=== PATIENT | female | born 1965 | race Caucasian/White ===

== ENCOUNTER 2018-02-22 06:37 | Inpatient (IN) | payer OTHER ==
[~2018-02-22] VITALS: Ht 162.6 cm; Wt 78.9 kg
[2018-02-22] VITALS (13 sets, daily range): BP systolic 105–151; BP diastolic 50–90
[~2018-02-22 06:37] MED LIST: FISH OIL 1,0001 EAC5 ORAL; MULTIVITAMINS1 EAC2 ORAL; PROBIOTIC1 EAC6 PO; TURMERIC 500 M1 EAC1 PO
[2018-02-22] MEDS ORDERED: Lidocaine 1% MPF 10mg/ml 5ml ONE (07:02)
[2018-02-22] MEDS ORDERED: Dexamethasone 4mg/ml vial ONE (07:02)
[2018-02-22] MEDS ORDERED: Propofol 200mg/20ml IV ONE (07:02)
[2018-02-22] MEDS ORDERED: Zemuron 50mg/5ml Inj IV ONE (07:07)
[2018-02-22] MEDS ORDERED: Thrombin 5000 units spray kit TOPIC ONE (07:08)
[2018-02-22] MEDS ORDERED: Thrombin 5000 units TOPIC ONE ×2 (07:09→07:10)
[2018-02-22] MEDS ORDERED: Gelfoam Absorbable 1gm powder pkt TOPIC ONE (07:09)
[2018-02-22] MEDS ORDERED: Gelfoam Size TOPIC ONE (07:09)
[2018-02-22] MEDS ORDERED: Bacitracin 50000 Units Vial ONE ×2 (07:09→09:10)
[2018-02-22] MEDS ORDERED: Bupivacaine 0.5% Inj 30 ml vial INJ ONE (07:10)
[2018-02-22] MEDS ORDERED: EPINEPHrine 1mg/1ml Amp ONE (07:10)
[2018-02-22] MEDS ORDERED: fentaNYL 100 mcg/2 mL IV ONE ×3 (07:14→11:27)
[2018-02-22] MEDS ORDERED: Ketamine 500mg Inj ONE (07:16)
[2018-02-22] MEDS ORDERED: Lidocaine 1% 10mg/ml/Epi 0.005mg/ml 30ml vial INJ ONE (08:17)
[2018-02-22] MEDS ORDERED: Heparin 5000 units/ml inj ONE (08:22)
--- NOTE | 2018-02-22 08:33 | Pre-Procedure Note/Attestation ---
Pre-Procedure Note/Attestation Complete Prior to Procedure Planned Procedure: not applicable Procedure Narrative: L4-5 ALIF Indications for Procedure Pre-Operative Diagnosis: L4-5 disc hernia Attestation I attest that I discussed the nature of the procedure; its benefits; risks and complications; and alternatives (and the risks and benefits of such alternatives ), prior to the procedure, with the patient (or the patient's legal provider relations representative). I attest that, if there was a reasonable possibility of needing a blood transfusion, the patient (or the patient's legal provider relations representative) was given the [facility] standardized written summary, pursuant to the Silverio Reggie Blood Safety Act ([place] Health and Safety Code # 1645, as amended). I attest that I re-evaluated the patient just prior to the surgery and that there has been no change in the patient's H&P, except as documented below: TANNER JACOBS Feb 22, 2018 08:33
[2018-02-22] MEDS ORDERED: Labetalol 5mg/ml 20ml vial IV ONE (09:05)
[2018-02-22] MEDS ORDERED: Sugammadex Sodium 200mg/2ml vial IV ONE (10:08)
--- NOTE | 2018-02-22 10:14 | Anethesia Preoperative Eval ---
Anesthesia Pre-op PMH/ROS General Date of Evaluation: Feb 22, 2018 Time of Evaluation: 07:20 Anesthesiologist: ASA Score: ASA 2 Mallampati Score Class I : Soft palate, uvula, fauces, pillars visible Class II: Soft palate, uvula, fauces visible Class III: Soft palate, base of uvula visible Class IV: Only hard plate visible Mallampati Classification: Class II Surgeon: esperanza Diagnosis: l4-5 disc nerniation Surgical Procedure: L 4-5 anterior lumbar interbody fusion w/ possible allograft Family History: no anesthesia problems Allergies: Coded Allergies: No Known Allergies (Unverified , 02/22/18) Past Medical History Cardiovascular: Denies: HTN, CAD, MT, valve dz, arrhythmia, other Pulmonary: Denies: asthma, COPD, NATE, other Gastrointestinal/Genitourinary: Denies: GERD, CRI, ESRD, other Neurologic/Psychiatric: Denies: dementia, CVA, depression/anxiety, TIA, other Endocrine: Denies: DM, hypothyroidism, steroids, other HEENT: Denies: cataract (L), cataract (R), glaucoma, [place] (L), [place] (R), other Hematology/Immune: Denies: anemia, DVT, bleeding disorder, other Musculoskeletal/Integumentary: Denies: OA, RA, DJD, DDD, edema, other Other: obesity PSxH Narrative: c/s, right arm Anesthesia Pre-op Phys. Exam Physician Exam Last Vital Signs Date Time Temp Pulse Resp B/P (MAP) Pulse Ox O2 Delivery O2 Flow Rate FiO2 02/22/18 07:13 98.5 79 18 143/90 (107) 98 98.5 02/22/18 07:00 Room Air Constitutional: NAD Cardiovascular: RRR Respiratory: CTA Gastrointestinal: S/NT/ND Airway Exam Mallampati Score: Class II MO: full ROM: full Dentures: lower Anesthesia Pre-op A/P Risk Assessment & Plan Assessment: asa 2 Plan: ETGA Status Change Before Surgery: No Pre-Antibiotics Drug: ancef 2 grams Given Within 1 Hr of Incision: Yes Time Given: 08:00 Trina Thompson M.D. Feb 22, 2018 10:14
[2018-02-22] MEDS ORDERED: LR 1000ml 1,000 ML IVLG SCH (10:15)
[2018-02-22] MEDS ORDERED: Hydromorphone 0.5mg/0.5ml inj IVP PRN ×2 (10:15→14:00)
[2018-02-22] MEDS ORDERED: Acetaminophen (Non formulary) 100 ML IV ONE (10:15)
[2018-02-22] MEDS ORDERED: DiphenhydrAMINE 50mg/ml Inj IVP PRN (10:15)
[2018-02-22] MEDS ORDERED: Labetalol 5mg/ml 20ml vial IV PRN (10:15)
[2018-02-22] MEDS ORDERED: Midazolam 2mg/2ml Inj IVP PRN (10:15)
[2018-02-22] MEDS ORDERED: fentaNYL 100 mcg/2 mL IV PRN (10:15)
[2018-02-22] MEDS ORDERED: ePHEDrine 50mg/ml Inj ONE (10:46)
--- NOTE | 2018-02-22 11:11 | Brief Operative Note ---
Immediate Post Operative Note Operative Note Chief Complaint: LBP disc hernia Pre-op Diagnosis: L4-5 disc hernia Procedure: L-45 ALIF Post-op Diagnosis: same as pre-op Findings: consistent w/pre-op dx studies Surgeon: Niall Jacobs Benefits Assistant: Hugo Mar Additional Surgeons: Shree Langston Anesthesiologist: Anesthesia: general Specimen: yes - disc Complications: none Condition: stable Fluids: See Anesth Estimated Blood Loss: volume - 50 cc Drains: none Implant(s) used?: Yes - Nuvasive implant and BMP TANNER JACOBS Feb 22, 2018 11:11
--- NOTE | 2018-02-22 11:19 | Immediate Post-Op Evaluation ---
Immediate Post-Op Evalulation Immediate Post-Op Evalulation Procedure: L4-5 anterior interbody fusion w/allograft Date of Evaluation: Feb 22, 2018 Time of Evaluation: 11:54 IV Fluids: LR 800ml Blood Products: 0 Estimated Blood Loss: 200ml Urinary Output: 100ml Blood Pressure Systolic: 120 Blood Pressure Diastolic: 69 Pulse Rate: 88 Respiratory Rate: 17 O2 Sat by Pulse Oximetry: 100 Temperature (Fahrenheit): 97.8 Pain Score (1-10): 0 Nausea: No Vomiting: No Complications none Patient Status: awake, patent, none Hydration Status: adequate Drug: ancef 2 grams Given Within 1 Hr of Incision: Yes Time Given: 08:00 Trina Thompson M.D. Feb 22, 2018 11:19
--- NOTE | 2018-02-22 11:59 | Diagnostic Imaging Report ---
Indication: Lower extremity numbness, intraoperative Technique: Intraoperative imaging Comparison: none Findings: Intraoperative images document placement of anterior fusion hardware and a disc spacer at L4-5 Impression: Intraoperative imaging, as described
--- NOTE | 2018-02-22 13:32 | 48 Hour Post Anesthesia Eval ---
Post Anesthesia Evaluation Procedure: L4-5 anterior interbody fusion w/allograft Date of Evaluation: Feb 22, 2018 Time of Evaluation: 12:50 Blood Pressure Systolic: 105 0: 59 Pulse Rate: 71 Respiratory Rate: 24 Temperature (Fahrenheit): 97.9 O2 Sat by Pulse Oximetry: 100 Airway: patent Nausea: No Vomiting: No Pain Intensity: 0 Hydration Status: adequate Mental Status/LOC: patient returned to baseline Post-Anesthesia Complications: none Follow-up care needed: N/A Trina Thompson M.D. Feb 22, 2018 13:32
[2018-02-22] MEDS ORDERED: D5 1/2NS 1,000 ML IV SCH (14:00)
[2018-02-22] MEDS ORDERED: HYDROmorphone 1mg/ml Carpuject SUBQ PRN (14:00)
[2018-02-22] MEDS: ceFAZolin 1gm/50ml Premix 50 ML IV SCH (16:40)
--- NOTE | 2018-02-22 18:26 | General Progress Note ---
Assessment/Plan Status Narrative s/p ALIF perioperative antibiotic prophylaxis given PT OT dvt prophylaxis pain control minimal blood loss Subjective Date patient seen: Feb 22, 2018 Time patient seen: 18:23 Allergies: Coded Allergies: No Known Allergies (Unverified , 02/22/18) Subjective S/P Anterior lumbar interbody fusion denies any chest pain has abdomen pain no vomiting no palpitation Objective Last 24 Hour Vital Signs Date Time Temp Pulse Resp B/P (MAP) Pulse Ox O2 Delivery O2 Flow Rate FiO2 02/22/18 15:08 97.9 02/22/18 14:38 97.9 02/22/18 13:32 208.2 71 24 100 02/22/18 13:12 98.3 02/22/18 13:05 98.2 71 17 118/65 98 Nasal Cannula 3 98.2 02/22/18 12:50 71 24 105/59 100 Nasal Cannula 3 02/22/18 12:42 75 18 118/62 100 Nasal Cannula 3 02/22/18 12:42 97.9 02/22/18 12:25 78 16 105/52 100 Nasal Cannula 3 02/22/18 12:15 79 19 119/60 100 Nasal Cannula 3 02/22/18 12:11 208.0 88 17 100 02/22/18 12:04 82 17 106/50 100 Simple Mask 6 02/22/18 11:59 83 19 120/68 100 Simple Mask 6 02/22/18 11:54 97.8 88 17 120/69 100 Simple Mask 6 97.8 02/22/18 07:13 98.5 79 18 143/90 (107) 98 98.5 02/22/18 07:00 Room Air Height (Feet): 5 Height (Inches): 4.00 Weight (Pounds): 175 General Appearance: WD/WN EENT: other - has tatooed eye brow Neck: other - no jvd Cardiovascular: normal rate, regular rhythm Respiratory/Chest: lungs clear Abdomen: other - no bowel sounds Extremities: other - no clubbing or cyanosis Hermelindo Jimenez MD Feb 22, 2018 18:26
[2018-02-22] MEDS: D5 1/2NS 1,000 ML IV SCH (20:35)
[2018-02-22] MEDS: HYDROcodone/Acetamin 10/325 tab ORAL PRN (21:17)
[2018-02-22] MEDS ORDERED: Hydromorphone 0.5mg/0.5ml inj SUBQ PRN (23:00)
[2018-02-23] VITALS: BP 155/74
[2018-02-23] MEDS: ceFAZolin 1gm/50ml Premix 50 ML IV SCH ×2 (00:20→08:11)
[2018-02-23] MEDS: D5 1/2NS 1,000 ML IV SCH ×4 (03:02→23:25)
[2018-02-23] MEDS: HYDROcodone/Acetamin 10/325 tab ORAL PRN ×3 (03:26→16:25)
[2018-02-23 06:13] VITALS: BP 118/58
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
[2018-02-23] MEDS ORDERED: LR 1000ml ONE (07:30)
[2018-02-23] MEDS ORDERED: NS Irrig 1000ml ONE (07:30)
[2018-02-23] MEDS ORDERED: Sterile Water Irrig 1000ml IRRIG ONE (07:30)
[2018-02-23] MEDS ORDERED: Propofol 1,000mg/ 100ml btl IV ONE (07:30)
[2018-02-23] MEDS: Heparin 5000 units/ml inj SUBQ SCH ×2 (09:00→21:00)
[2018-02-23 11:04] VITALS: BP 114/79
--- NOTE | 2018-02-23 15:22 | General Progress Note ---
Assessment/Plan Status Narrative s/p ALIf doing well pt ot dvt prophyalxos paincontrol monitro carolynley much improved feeding per surgeron ivf Subjective Date patient seen: Feb 23, 2018 Time patient seen: 15:20 Allergies: Coded Allergies: No Known Allergies (Unverified , 02/22/18) Subjective S/P Anterior lumbar interbody fusion denies any chest pain has abdomen pain no vomiting no palpitation has some abdomen lj did well with pt Objective Last 24 Hour Vital Signs Date Time Temp Pulse Resp B/P (MAP) Pulse Ox O2 Delivery O2 Flow Rate FiO2 02/23/18 11:04 98.3 79 18 114/79 (91) 98 98.3 02/23/18 09:00 Room Air 02/23/18 06:13 97.1 69 18 118/58 (78) 100 97.1 02/23/18 00:00 97.7 83 18 155/74 (101) 99 97.7 02/22/18 20:00 98.2 72 18 151/69 (96) 99 98.2 Intake and Output 02/22/18 02/23/18 19:00 07:00 Intake Total 1450 ml 900 ml Output Total 300 ml 1375 ml Balance 1150 ml -475 ml Intake IV Total 1450 ml 900 ml Output Urine Total 100 ml 1375 ml Stool Total 0 ml Estimated Blood Loss 200 ml # Voids 1 Height (Feet): 5 Height (Inches): 4.00 Weight (Pounds): 174 General Appearance: WD/WN Cardiovascular: normal rate, regular rhythm Respiratory/Chest: lungs clear Abdomen: soft Extremities: other - no clubbing Hermelindo Jimenez MD Feb 23, 2018 15:22
[2018-02-23 15:33] VITALS: BP 154/54
--- NOTE | 2018-02-23 22:46 | Progress Note ---
DATE: 02/23/2018 ACUTE PAIN MANAGEMENT PHYSICIAN PROGRESS NOTE MEDICATIONS: Medication administration record reviewed. Medications include Phenergan, Protonix, Zofran, Dilaudid, Kelso, subcutaneous heparin, Benadryl, Mylanta, and Tylenol. LABORATORY STUDIES: No interval laboratory studies. OBJECTIVE: VITAL SIGNS: Pain level 5/10 on the visual analog pain scale. Afebrile, pulse 79, respirations 18, blood pressure 114/79, and oxygen saturation 98% on room air. I spent over 60 minutes in consultation today. I saw the patient at the bedside with the physical therapist. I also discussed the case with Internal Medicine, Dr. Hermelindo Jimenez, and the surgeon, Dr. Medina. The patient is doing exceeding well. She is moving in and out of bed with ease. She has been alternating doses of the p.r.n. Kelso with Dilaudid, receiving excellent analgesic effect. The patient already has a prescription for Kelso, which her at home. The patient shows no adverse side effects from any medications and continues with intravenous fluids at a generous rate of 150 mL an hour. The patient has been voiding urine well after removal of the Lutz catheter, the patient states that her urine is quite clear. The patient is hungry after her ALIF procedure, she still has not yet passed any flatus. We will continue her NPO except for medications and sips for now. Once she passes flatus, we will aggressively increase her diet for tolerability. The surgeon has the patient on subcutaneous heparin q.12 hours per the surgeon for DVT prophylaxis. The patient has been compliant using her incentive spirometer, which has kept her afebrile postoperatively. We will see how the patient continues to progress with the uatsdin of bowel function for likely discharge home in the next 48 hours. Hermelindo Bean M.D. DR: DIALLO JOB#: [id number] CC:
[2018-02-24] MEDS: HYDROcodone/Acetamin 10/325 tab ORAL PRN ×2 (01:04→08:59)
[2018-02-24] MEDS: D5 1/2NS 1,000 ML IV SCH ×2 (06:02→12:30)
[2018-02-24 07:24] LABS: BASOPHILS % (AUTO) 0.5 % (0.0-2.0); EOSINOPHILS % (AUTO) 0.1 % (0.0-3.0); HEMATOCRIT 33.5 % (37.0-47.0); HEMOGLOBIN 11.1 G/DL (12.0-16.0); LYMPHOCYTES % (AUTO) 10.5 % (20.0-45.0); MEAN CORPUSCULAR VOLUME 88 FL (80-99); MONOCYTES % (AUTO) 9.7 % (1.0-10.0); NEUTROPHILS % (AUTO) 79.1 % (45.0-75.0); PLATELET COUNT 343 K/UL (150-450); RED BLOOD COUNT 3.82 M/UL (4.20-5.40); RED CELL DISTRIBUTION WIDTH 13.5 % (11.6-14.8); WHITE BLOOD COUNT 17.6 K/UL (4.8-10.8)
[2018-02-24 07:40] LABS: ANION GAP 7 mmol/L (5-15); BLOOD UREA NITROGEN 6 mg/dL (7-18); CALCIUM 8.4 MG/DL (8.5-10.1); CARBON DIOXIDE 30 MMOL/L (21-32); CHLORIDE 101 MMOL/L (98-107); CREATININE 0.7 MG/DL (0.55-1.30); SODIUM 138 MMOL/L (136-145)
[2018-02-24] MEDS: Heparin 5000 units/ml inj SUBQ SCH (08:51)
--- NOTE | 2018-02-24 09:58 | Discharge Summary ---
Discharge Summary Discharge Summary Discharge Summary DATE OF ADMISSION: 02/22/2018 DATE OF DISCHARGE: 02/24/2018 REASON FOR HOSPITALIZATION: lumbar disxc disease SURGERY PERFORMED: L:4-L5 ALIF CONDITION IN THE HOSPITAL:The patient tolerated the surgery without complications. DISCHARGE CONDITION: The patient was stable at discharge. takeing po and passing gas had hypokalemia repleted. POSTOPERATIVE ORDERS: lumbar spein precaution. No bending, No lifting, POSTOPERATIVE FOLLOW UP: The patient will be followed indr gravory in 2 weeks. Hermelindo Jimenez MD Feb 24, 2018 09:58
[2018-02-24 10:00] VITALS: BP 115/62
--- NOTE | 2018-02-24 16:00 | Progress Note ---
DATE: 02/24/2018 ACUTE PAIN MANAGEMENT PHYSICIAN PROGRESS NOTE MEDICATIONS: Medication administration record reviewed. Medications include Phenergan, Protonix, Zofran, Dilaudid, [place], heparin, Benadryl, Mylanta and Tylenol. LABORATORY STUDIES: From this morning, 02/24/2018 shows white count 18, hematocrit 34 and platelets 343. Vital signs, afebrile, pulse 88, respirations 19, blood pressure 154/84 and oxygen saturation 97% on room air. I spent over 60 minutes in consultation today. I saw the patient at bedside with the nurse RN, Natalio, Internal Medicine, Dr. Hermelindo blunt. I also spoke with the surgeon, Dr. Medina's and his bilingual legal assistant surgeon Dr. Mar. Overnight, the patient did start passing positive flatus. She was quickly advance in her diet and she tolerated clear liquids without any difficulties. Over the past 8 hours, we will advance her diet to soft this afternoon to test for tolerability. The patient denies any nausea symptoms. The patient has been compliant using her incentive spirometer. She has been extremely active ambulating. She moves in and out of bed with ease. Her already picked up the prescription for Gaylord for home usage. Here in the hospital, the patient has been using Gaylord primarily for pain control with infrequent doses of Dilaudid. Dr. Jimenez will discuss discharge planning with the surgeon after the patient's ALIF procedure. The patient will continue ambulating aggressively for DVT prophylaxis. The patient feels comfortable that she can manage herself at home in the care of her whenever she is cleared for discharge. The patient will follow up in Dr. Medina's outpatient surgical clinic for surgical followup. Hermelindo Bean M.D. DR: CJ JOB#: [id number] CC:
--- NOTE | 2018-03-01 02:45 | Operative Note - Dictated ---
DATE OF OPERATION: 02/22/2018 NOTE: POOR AUDIO PREOPERATIVE DIAGNOSIS: Degenerative disk disease, lumbosacral spine. POSTOPERATIVE DIAGNOSIS: Degenerative disk disease, lumbosacral spine. PROCEDURE: Anterior retrograde exposure, interbody fusion L4-L5. SURGEON: Vinicio Langston M.D. CO-SURGEON: Sruthi Medina M.D. ANESTHESIA: General. ESTIMATED BLOOD LOSS: 100 mL. fully explained to the patient and the family consent obtained. Risks and benefits were explained to the patient and the family included, but not limited to bleeding, infection, damage to wound infection, wound dehiscence, DVT, PE, loss of limb, loss of life. PROCEDURE: 1. Anterior retrograde exposure interbody fusion, lumbosacral spine, L4-L5. 2. Ligation of left iliolumbar veins. 3. Mobilization of the aorta and vena cava. 4. Mobilization of left common iliac artery and vein. OPERATIVE PROCEDURE: The patient was placed in supine position and prepped and draped in usual sterile fashion. Time-out was called. Antibiotics were given. I made an 8-cm incision in the left lower quadrant in horizontal fashion. Incision was taken down through the subcutaneous tissue, which was then opened using electrocautery. Left anterior rectus sheath was opened using electrocautery. Left rectus muscle was mobilized superiorly and inferiorly about 2 cm. retractor was placed retracting the contents to the right to the left. I entered the left retroperitoneal space and dissected the left common iliac artery and vein iliac artery and vein electrocautery was done . There was sympathetic change in the left psoas muscles was identified and preserved. Ureter was identified and preserved. I ligated the left lumbar vein using a 2 silk tie and titanium clips. Next, very gently, then vena cava and aorta were mobilized to the right side using a peanut dissector. The left common iliac artery and vein was mobilized and moved to the right. The segmental vessels on the left side were ligated using a titanium clip. Exposure for L4-L5 was obtained by moving the left common iliac artery and vein vena cava and aorta to the right. We proceeded with a diskectomy and placement of the for the details of that operation. After all were satisfactory read by Dr. Medina, needle counts and sponge count was correct. The wounds were irrigated using antibiotic solution. The left iliac artery had a good pulsation. The vein was soft been incised 2 cm introducing #0 Vicryl suture in running fashion. Anterior rectus sheath was reapproximated using a #1 Vicryl suture in a running fashion with interrupted sutures in the middle. The wound was irrigated again and closed in two layers of 2-0 Vicryl suture for subcutaneous and Steri-Strips for the skin. The patient tolerated the procedure well. Vinicio Langston MD DR: AUSTIN JOB#: [id number] CC:
--- NOTE | 2018-03-02 00:15 | Operative Note - Dictated ---
DATE OF OPERATION: 02/22/2018 PREOPERATIVE DIAGNOSIS: Degenerative disc disease of the lumbosacral spine. POSTOPERATIVE DIAGNOSIS: Degenerative disc disease of the lumbosacral spine. PROCEDURE: 1. Right radial arterial line placement. 2. Ultrasound guidance into radial artery. OPERATIVE NOTE: Risks, benefits, complications, and alternatives were carefully discussed with the patient. The patient was intubated and at that time and I started the procedure. The anesthesiologist had tried left radial artery without any success. Under ultrasound guidance, I gained access into the right radial artery, guide wire was advanced without any difficulties. The arterial line was advanced over the guide wire and secured to the skin using tape. Vinicio Langston MD DR: CATARINA JOB#: [id number] CC:
== END 2018-02-24 16:50 | disposition home or self-care (01) | DRG 460 ==
LOC: SDSOVERFLO 06:37 → 3E 13:29
PROC: 0SG00A0 Fusion of Lumbar Vertebral Joint with Interbody Fusion Device, Anterior Approach, Anterior Column, Open Approach (ICD-10-PCS; principal; 2018-02-22 07:30)
PROC: 0SB20ZZ Excision of Lumbar Vertebral Disc, Open Approach (ICD-10-PCS; principal; 2018-02-22 07:30)
PROC: 3E0U0GB Introduction of Recombinant Bone Morphogenetic Protein into Joints, Open Approach (ICD-10-PCS; principal; 2018-02-22 07:30)
DX: M51.16 Intervertebral disc disorders with radiculopathy, lumbar region (principal); V89.2XXS Person injured in unspecified motor-vehicle accident, traffic, sequela; E66.9 Obesity, unspecified; F51.04 Psychophysiologic insomnia
CPT/HCPCS: 36415; 72020; 76001; 80048; 85025; 86850; 86900; 86901; 87081; 94003; 94150; J2405; J8499